=== PATIENT | male | born 2000 | race Caucasian/White ===

== ENCOUNTER → 2023-10-21 08:14 | Outpatient (CLI) | payer OTHER, SELFPAY ==
--- NOTE | 2023-10-21 08:17 | DI.MRI.S_ITS ---
PROCEDURE: MR KNEE LT WO CON INDICATIONS: PAIN IN LEFT KNEE TECHNIQUE: Noncontrast sagittal PD fast spin echo and T2 fast spin echo with fat saturation, sagittal 3-D FLASH with fat saturation; coronal T1 spin echo and PD fast spin echo with fat saturation, and axial PD fast spin echo with fat saturation through the knee. COMPARISON: None. FINDINGS: Image quality: Excellent. Menisci: Horizontal oblique tear involving medial periphery of posterior horn medial meniscus is seen extending to inferior articulating surface. The lateral meniscus is intact. The meniscal root ligaments appear intact. Cruciate ligaments: The anterior and posterior cruciate ligaments appear intact. Medial structures: The medial collateral ligament appears mildly thickened near its femoral insertion. Visualized portions of the pes anserinus tendons appear normal. No abnormal bursal fluid. Lateral structures: The lateral collateral ligament, long and short heads of the biceps femoris tendon appear intact. The popliteus tendon appears normal. Iliotibial band appears normal. Anterior structures: The quadriceps and patellar tendons appear intact. Patellar alignment is normal. No femoral trochlear dysplasia or ventral trochlear prominence. No edema in the infrapatellar fat pad. Bones and cartilage: No bone marrow contusions or fractures. The cartilage of the medial and lateral femorotibial compartments, as well as the patellofemoral compartment, appears normal in thickness. Joint space: There is small knee joint fluid. No Hanna's cyst. Normal appearing synovial plicae are incidentally noted. IMPRESSION: 1. Subtle horizontal oblique tear involving posterior horn medial meniscus medial periphery extending to inferior articulating surface. The lateral meniscus is intact. 2. The cruciate ligaments are intact. 3. Low-grade proximal MCL sprain. 4. No marrow edema. No fracture or dislocation. Articulating cartilages are intact. 5. Small joint effusion, no loose bodies. Dictated by: Dominic Gomez M.D. on 10/22/2023 at 13:44 Approved by: Dominic Gomez M.D. on 10/22/2023 at 13:48
== END ==
DX: S83.242A Other tear of medial meniscus, current injury, left knee, initial encounter (principal); S83.412A Sprain of medial collateral ligament of left knee, initial encounter; M25.562 Pain in left knee; M25.462 Effusion, left knee
CPT/HCPCS: 73721